=== PATIENT | female | born 1960 | race Caucasian/White ===

== ENCOUNTER → 2016-10-21 | Outpatient (REF) ==
[~2016-10-21] MED LIST: AMOXICILLIN 50500 MG PO; BENICAR40 MG PO; CEPHALEXIN500 M1 PO; NORCO 325 MG-51 TAB PO; PERCOCET 325 MG1 TA2 PO; PHENERGAN W/CO120 ML PO; PREDNISONE20 MG PO; VALIUM5 MG PO; ZITHROMAX 250M250 MG PO
== END ==
LOC: ZLAB.WCH 11:08
DX: Z01.89 Encounter for other specified special examinations (principal)

== ENCOUNTER → 2017-01-13 | Outpatient (REF) | LOC: COL.CARD 15:11 | DX: I10 Essential (primary) hypertension (principal); R00.2 Palpitations ==

== ENCOUNTER → 2019-06-08 | Outpatient (REF) | LOC: COL.CARD 09:55 | DX: Z01.818 Encounter for other preprocedural examination (principal) ==